=== PATIENT | male | born 1990 | race Caucasian/White ===

== ENCOUNTER 2024-09-16 19:43 | Observation (INO) | payer OTHER, SELFPAY ==
[2024-09-16 19:44] VITALS: BP 152/98; PULSE 67; RESP 18; TEMP 36.9; O2SAT 96
--- NOTE | 2024-09-16 19:45 | ED_ITS ---
HPI - General Adult General Chief complaint: Alcohol Stated complaint: dehydration Time Seen by Provider: 09/16/24 19:45 Source: patient Mode of arrival: ambulatory History of Present Illness HPI narrative: 34-year-old white male alcoholic was sober for 3 130 days and then relapsed 2 days ago since that time he has been nauseous throwing up can not keep anything down. He went altered emergency room where they put an IV in him and gave him Zofran but he had a prolonged wait after triage show a left without being seen or AMA it comes here with his IV and. ( this was removed and a new IV was started ). patient state he vomited over 10 or 12 times yesterday and some diarrhea he is nauseated he feels a little bit better than before but feels dizzy and lightheaded when he stands up otherwise he denies any pain the ankle sore throat from vomiting. For denies any bleeding or bruising lumps or bumps weakness or numbness or any other complaints. Related Data Home Medications ?Medication ?Instructions ?Recorded ?Confirmed ?Last Taken ?Type bupropion HCl 300 mg 24 hr tablet, 300 mg PO DAILY 09/16/24 Unknown History extended release diazepam 2 mg tablet 2 mg PO Q6H PRN anxiety 09/16/24 Unknown History lithium carbonate 300 mg tablet 300 mg PO BID 09/16/24 Unknown History Allergies Allergy/AdvReac Type Severity Reaction Status Date / Time No Known Allergies Allergy Unverified 07/09/14 16:05 Review of Systems 2 Review of Systems: All systems reviewed & are unremarkable except as noted in HPI and below [facility] Past Medical History Medical History (Updated 09/16/24 @ 21:54 by Richy Felder MD) Insomnia Chronic depression Chronic anxiety Exam 2 Narrative: ?White male patient with no apparent distress.? Head normocephalic, atraumatic.? Eyes conjunctiva pink sclera nonicteric.? Extraocular movements are intact.? Ears externally normal.? Oropharynx is clear with moist mucous membranes without exudates.? Neck is supple nontender no lymphadenopathy.? Back is nontender.? Lungs are clear.? Heart is regular rate and rhythm without murmurs gallops or rubs.? Chest wall nontender. Abdomen is soft and nontender no hepatosplenomegaly or masses no CVA tenderness no abdominal bruits.? Extremities no cyanosis clubbing or edema.? Skin is warm and dry without rashes or lesions.? Neurological patient is alert and oriented x 4. Motor and sensory grossly intact.? Gait is normal. Course Vital Signs Vital signs: Vital Signs Temperature 36.9 C 09/16/24 19:44 Pulse Rate 67 09/16/24 19:44 Respiratory Rate 18 09/16/24 19:44 Blood Pressure 152/98 H 09/16/24 19:44 Pulse Oximetry 96 09/16/24 19:44 Oxygen Delivery Room Air 09/16/24 19:44 Temperature 37.7 C H 09/16/24 21:47 Pulse Rate 67 09/16/24 21:47 Respiratory Rate 18 09/16/24 21:47 Blood Pressure 140/90 09/16/24 21:47 Pulse Oximetry 97 09/16/24 21:47 Oxygen Delivery Room Air 09/16/24 21:47 Medical Decision Making MDM Narrative Medical decision making narrative: Patient placed in room 1 with his mother magnesium ETOH urine drug screen CMP UA lipase CBC Independent Historian: ? mode Differential Dx includes but not limited to: electrolyte imbalance alcoholism alcohol withdrawal pancreatitis Medications were Reviewed:? ? home meds reviewed Medications treatments given: normal saline 1 L bolus Zofran 4 mg IV , both were repeated. He felt better after his 1st round of saline and Zofran. complains of reflux burning for which he takes anti-reflux medications. Protonix 40 mg IV given. Patient was offered admission patient refused. Independently Interpreted by me:? labs independently interpreted by me.?? External Source Review:?? Medical conditions/social Situation Impacting Patients Care:?? History of alcoholism Shared decision Making:? Offered admission but patient refused be given Protonix 40 mg daily and Zofran 4 mg ODT as needed for nausea vomiting encouraged to increase his fluids by mouth return if he gets worse or develops any new symptoms. patient will take 20 mg of potassium daily for the next 10 days and follow up with his primary care provider this week Discussed with ? Clinical impression:? ? Nausea vomiting diarrhea, hypokalemia, alcoholism ? Patient disposition: ? discharge home ? Condition at discharge: stable Vital Signs Vital Signs: Vital Signs Temperature 36.9 C 09/16/24 19:44 Pulse Rate 67 09/16/24 19:44 Respiratory Rate 18 09/16/24 19:44 Blood Pressure 152/98 H 09/16/24 19:44 Pulse Oximetry 96 09/16/24 19:44 Oxygen Delivery Room Air 09/16/24 19:44 Temperature 37.7 C H 09/16/24 21:47 Pulse Rate 67 09/16/24 21:47 Respiratory Rate 18 09/16/24 21:47 Blood Pressure 140/90 09/16/24 21:47 Pulse Oximetry 97 09/16/24 21:47 Oxygen Delivery Room Air 09/16/24 21:47 Lab Data 09/16/24 20:04 09/16/24 20:04 Labs: Lab Results 09/16/24 Range/Units 20:04 WBC 22.6 H (4.8-10.8) K/mm3 RBC 5.75 (4.70-6.10) M/mm3 Hgb 16.6 (14.0-18.0) g/dL Hct 48.9 (40.0-54.0) % MCV 85.0 (78.0-102.0) fL MCH 28.9 (27.0-31.0) pg MCHC 33.9 (32-36) g/dL RDW 13.4 (11.6-14.4) % Plt Count 289 (150-420) K/mm3 MPV 10.9 (8.7-11.0) fl Sodium 135 L (137-145) mmol/L Potassium 3.1 L (3.4-5.0) mmol/L Chloride 88 L (98-107) mmol/L Carbon Dioxide 35 H (22-30) mmol/L Anion Gap 12 (4-12) mmol/L BUN 25 H (9-20) mg/dL Creatinine 1.20 (0.7-1.3) mg/dL Estim Creat Clear Calc 74 ml/min Estimated GFR > 60 (59 - ) Glucose 149 H (65-110) mg/dL Calculated Osmolality 287 (285-295) mOsm/kg Calcium 9.6 (8.4-10.2) mg/dL Magnesium 2.3 (1.6-2.3) mg/dL Total Bilirubin 2.0 H (0.2-1.3) mg/dL AST 51 (17-59) U/L ALT 57 H (6-50) U/L Alkaline Phosphatase 113 (38-126) U/L Total Protein 8.7 H (6.3-8.2) g/dL Albumin 5.3 H (3.5-5.1) g/dL Lipase 31 (23-300) U/L Urine Color Brown A (Yellow) Urine Appearance Clear (Clear) Urine pH 7.0 (5.0-8.0) Ur Specific [place] 1.015 (1.010-1.020) Urine Protein 2+ H (Negative) Urine Glucose (UA) Negative (Negative) Urine Ketones Negative (Negative) Ur Blood (Man) Negative (Negative) Urine Nitrate Negative (Negative) Urine Bilirubin 1+ H (Negative) Urine Urobilinogen 1.0 (0.2-1.0) mg/dL Leukocyte Esterase Rfl Negative (Negative) RAYMON/UL Urine RBC 0-2 (0-2) /hpf Urine WBC 0-3 (0-3) /hpf Ur Squamous Epith Cells None seen (Few) /hpf Urine Bacteria None seen (None) /hpf Urine Opiates Screen Negative (Negative) Urine Methadone Screen Negative (Negative) Ur Barbiturates Screen Negative (Negative) Ur Phencyclidine Scrn Negative (Negative) Ur Amphetamine Screen Negative (Negative) U Benzodiazepines Scrn Positive A (Negative) Urine Cocaine Screen Negative (Negative) U Cannabinoids Screen Positive A (Negative) Ethyl Alcohol < 10 (<10) mg/dL Discharge Plan Discharge Clinical Impression: Nausea vomiting and diarrhea, Acute hypokalemia, Chronic gastroesophageal reflux disease Patient Disposition: Home Condition: Stable Instructions: Hypokalemia (ED), GERD (Gastroesophageal Reflux Disease) (ED), Acute Nausea and Vomiting (ED), Acute Diarrhea (ED) Additional Instructions: take Protonix 40 mg daily. Take Zofran 4 mg oral dissolvable tablet every 4 hours as needed for nausea vomiting. Advance her diet slowly. Follow up with your primary care provider this week. Return if you get worse or develops any new symptoms. Take K-Dur 20 mEq daily for 10 days Patient Language: Ecuadorean Prescriptions: New potassium chloride 20 mEq tablet,ER particles/crystals 20 meq PO DAILY Qty: 10 0RF ondansetron 4 mg tablet,disintegrating 4 mg PO Q4H PRN (Reason: nausea and vomiting) 7 Days Qty: 20 0RF Rx Instructions: give 1st dose 30min before emetogenic chemo pantoprazole [Protonix] [address] for susp in packet 40 mg PO DAILY Qty: 30 0RF No Action bupropion HCl 300 mg tablet extended release 24 hr 300 mg PO DAILY lithium carbonate 300 mg tablet 300 mg PO BID diazepam 2 mg tablet 2 mg PO Q6H PRN (Reason: anxiety) Follow-up/Referrals: Sandra Blair APRN [Primary Care Provider] - Stand Alone Forms: Work/School Release IP Time of Disposition: 21:52
--- OUTSIDE RECORDS SUMMARY | 2024-09-16 19:45 | XMS_ITS | Encounter Summary ---
Author Organization [facility] Healthcare Address [address] [place] [address] Care Team Providers Care Schedule Analyst Name Role Phone Beto Blair MD Primary Care Provider [phone] Reason for Visit * Reason Comments Vomiting Encounter Details Date Type Department Care Team (Late st Contact Info) Description 09/16/2024 6:52 PM CDT - 09/16/2024 6:55 PM CDT Emergency [facility] Emergency Department [address] [place] [id number] Discharge Disposition: Left without being seen Social History Tobacco Use Types Packs/Day Years Used Date Smoking Tobacco: Every Day Cigarettes Last attempted to quit: 08/15/2020 Smokeless Tobacco: Never Alcohol Use Standard Drinks/Week Comments Yes 0 (1 standard drink = 0.6 oz pur e alcohol) beer AUDIT-C Answer Date Recorded Frequency of Alcohol Consumption Not on file 11/23/2018 Average Number of Drinks 1 or 2 019 Frequency of Binge Drinking Not on file 12/2018 PHQ-2 Answer Date Recorded PHQ-2 Total Score (If total score is 3 or more points, staff should administer the PHQ-9) 0 02/12/2024 Personal Safety Answer Date Recorded Have you ever been in or are you currently in a harmful physical or emotional relationship or is someone making you feel afraid or unsafe? Denies 09/16/2024 Sex and Gender Information Value Date Recorded Sex Assigned at Not on file Legal Sex Male 2:35 PM [employer] Gender Identity Not on file Sexual Orientation Not on file documented as of this encounter Last Filed Vital Signs Vital Sign Reading Time Taken Comments Blood Pressure 140/96 09/16/2024 4:41 PM CDT Pulse 83 09/16/2024 4:39 PM CDT Temperature 36.3 C (97.4 F) 09/16/2024 4:39 PM CDT Respiratory Rate 19 09/16/2024 4:39 PM CDT Oxygen Saturation 100% 09/16/2024 4:39 PM CDT Inhaled Oxygen Concentration - - Weight 74.8 kg (165 lb) 09/16/2024 4:39 PM CDT Height 182.9 cm (6') 09/16/2024 4:39 PM CDT Body Mass Index 22.38 09/16/2024 4:39 PM CDT documented in this encounter Medications at Time of Discharge acetaminophen (TYLENOL) 500 mg tabletIndications :Pain Take 2 tablets (1,000 mg total) by mouth every 6 (six) hours as needed for pain amitriptyline (ELAVIL) 25 mg tablet Take 1 tablet (25 mg total) by mouth nightly 90 tablet 4 02/12/2024 02/11/2025 buPROPion XL (WELLBUTRIN XL) 300 mg 24 hr tablet TAKE 1 TABLET (300 MG TOTAL) BY MOUTH EVERY MORNING. 90 tablet 3 08/05/2024 08/05/2025 diazePAM (VALIUM) 2 mg tablet Take 1 tablet (2 mg total) by mouth every 6 (six) hours as needed for anxiety 30 tablet 08/21/2024 lithium 300 mg tablet Take 1 tablet/capsul e (300 mg total) by mouth 2 (two) times a day 180 tablet/capsule 3 02/12/2024 02/11/2025 documented as of this encounter Discharge Disposition Disposition Code Departure Means Destination Comment s Left without being seen documented in this encounter ED Notes * Elsie Kirby RN - 09/16/2024 4:38 PM CDT Pt ambulatory to triage for vomiting. 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 documented in this encounter Plan of Treatment Scheduled Orders Name Type Priority Associated Diagnoses Orde r Schedule Urinalysis reflex to microscopic and culture Urine Microbiology STAT STAT for 1 Occurrences starting 09/16/2024 until 09/16/2024 documented as of this encounter Procedures Procedure Name Priority Date/Time Associated Diagnosis Comments EGFR STAT 09/16/2024 4:46 PM CDT DIFFERENTIAL AUTO STAT 09/16/2024 4:4 6 PM CDT CBC WITH AUTO DIFFERENTIAL STAT 09/16/2024 4:46 PM CDT COMPREHENSIVE METABOLIC PANEL STAT 09/16/2024 4:46 PM CDT documented in this encounter Results * eGFR (09/16/2024 4:46 PM CDT) eGFR >90 >=60 mL/min/1. 73 m2 Comment: Interpretive Data Reference Interval Normal >/= 90 mL/min/1.73m2 Mildly decreased* 60 - 89 mL/min/1.73m2 Mildly to moderately decreased 45 - 59 mL/min/1.73m2 Moderately to severely decreased 30 - 44 mL/min/1.73m2 Severely decreased 15 - 29 mL/min/1.73m2 Kidney Failure < 15 mL/min/1.73m2 *Relative to young adult level Estimated glomerular filtration rate is determined by the 2020 CKD-EPI equation recommended by the National Kid[employer] (A Unifying Approach to GFR Estimation: Recommendations of the NKF-ASK Task Force on Reassessing the Inclusion of Race in Diagnosing Kidney Disease, JASN 202). The CKD-EPI equation should not be used for patients with unstable renal function and has not been validated in children and those over 70. Current interpretive data was last reviewed 2021. Blood 09/16/2024 4:46 PM CDT 09/16/2024 5:08 PM CDT us Mehdi Jaffe MD LAB BLOOD ORDERABLES Final R esult [facility]) [facility] [place] [address] * (ABNORMAL) Differential, auto (09/16/2024 4:46 PM CDT) Neutrophil abs 18.11(H) 1.50 - 6.50 K/cumm Imm gran abs 0.13(H) 0.00 - 0.10 K/cumm [facility] ([facility]) Lymphocyte abs 3.28 0.80 - 3.30 K/cumm [facility] ([facility]) Monocyte abs 1.84(H) 0.20 - 0.80 K/cumm [facility] ([facility]) Eosinophil abs 0.01 0.00 - 0.50 K/cumm [facility] ([facility]) Basophil abs 0.06 0.00 - 0.10 K/cumm [facility] ([facility]) Neutrophil pct 77.2 % [facility] ([facility]) Comment: Interpretive Data Percent cell count reference ranges are not reported, since discordance with absolute values may lead to misinterpretation of CBC data. Current Interpretive Data was last revised on 2017. Imm gran pct 0.6 % [facility] ([facility]) Comment: Interpretive Data Percent cell count reference ranges are not reported, since discordance with absolute values may lead to misinterpretation of CBC data. Current Interpretive Data was last revised on 2017. Lymphocyte pct 14.0 % [facility] ([facility]) Comment: Interpretive Data Percent cell count reference ranges are not reported, since discordance with absolute values may lead to misinterpretation of CBC data. Current Interpretive Data was last revised on 2017. Monocyte pct 7.9 % [facility] ([facility]) Comment: Interpretive Data Percent cell count reference ranges are not reported, since discordance with absolute values may lead to misinterpretation of CBC data. Current Interpretive Data was last revised on 2017. Eosinophil pct 0.0 % [facility] ([facility]) Comment: Interpretive Data Percent cell count reference ranges are not reported, since discordance with absolute values may lead to misinterpretation of CBC data. Current Interpretive Data was last revised on 2017. Basophil pct 0.3 % [facility] ([facility]) Comment: Interpretive Data Percent cell count reference ranges are not reported, since discordance with absolute values may lead to misinterpretation of CBC data. Current Interpretive Data was last revised on 2017. Blood 09/16/2024 4:46 PM CDT 09/16/2024 5:08 PM CDT us Mehdi Jaffe MD LAB BLOOD ORDERABLES Final R esult [facility] ([facility]) [facility] [place] [address] * (ABNORMAL) Comprehensive metabolic panel (09/16/2024 4:46 PM CDT) Sodium 135 135 - 145 mmol/L Potassium, pl 3.0(C) 3.3 - 4.9 mmol/L [facility] ([facility]) Comment:Critical Result call ed by [email or web address] at 2024-09-16 17:58:59. Result Read Back by Shasta Morris ER charge Chloride 86(L) 97 - 110 mmol/L [facility] ([facility]) CO2 27 22 - 32 mmol/L [facility] ([facility]) Anion gap 22(H) 2 - 15 mmol/L [facility] ([facility]) BUN 21 6 - 25 mg/dL [facility] ([facility]) Creatinine 1.02 0.80 - 1.30 mg/dL [facility] ([facility]) Comment:Icteric sample, test results may be affected. Glucose 157 70 - 199 mg/dL [facility] ([facility]) Comment: Interpretive Data Fasting glucose >/= 126 mg/dl is diagnostic for diabetes. Fasting is defined as no caloric intake for at least 8 hours. Fasting glucose between 100 mg/dl to 125 mg/dl is diagnostic of prediabetes. In a patient with classic symptoms of hyperglycemia or hyperglycemic crisis, a random glucose >/= 200 mg/dl is diagnostic for diabetes. In the absence of unequivocal hyperglycemia, results should be confirmed by repeat testing. The classification and Diagnosis of Diabetes Diabetes Care 202; 46: S19-S40. Current interpretive data was last revised 2022. Calcium 10.3 8.5 - 10.3 mg/dL [facility] ([facility]) Bilirubin, total 1.6(H) 0.1 - 1.2 mg/dL [facility] ([facility]) Protein, pl 8.3 6.5 - 8.5 g/dL [facility] ([facility]) Albumin 5.3(H) 3.5 - 5.0 g/dL [facility] ([facility]) Alk phos 139(H) 40 - 130 Units/L [facility] ([facility]) ALT 35 7 - 55 Units/L [facility] ([facility]) AST 31 10 - 50 Units/L [facility] ([facility]) Blood Venous blood specimen / Unknown 09/16/2024 4:46 PM CDT 09/16/2024 5:08 PM CDT us Mehdi Jaffe MD LAB BLOOD ORDERABLES Final R esult [facility] ([facility]) [address] [facility] [place] [address] * (ABNORMAL) CBC with auto differential (09/16/2024 4:46 PM CDT) WBC 23.43(H) 3.80 - 9.90 K/cumm Hgb 16.9 13.0 - 17.5 g/dL [facility] ([facility]) Hct 47.8 38.9 - 50.3 % [facility] ([facility]) Plt 271 150 - 400 K/cumm [facility] ([facility]) MPV 11.2 9.1 - 12.3 fL [facility] ([facility]) RBC 5.68 4.30 - 5.80 M/cumm [facility] ([facility]) MCV 84.2 81.3 - 96.4 fL [facility] ([facility]) MCH 29.8 27.1 - 33.3 pg [facility] ([facility]) MCHC 35.4 32.3 - 35.7 g/dL [facility] ([facility]) RDW CV 13.6 11.1 - 14.9 % [facility] ([facility]) RDW SD 42.0 35.7 - 48.1 fL [facility] ([facility]) NRBC abs 0.00 0.00 - 0.01 K/cumm [facility] ([facility]) Blood Venous blood specimen / Unknown 09/16/2024 4:46 PM CDT 09/16/2024 5:08 PM CDT us Mehdi Jaffe MD LAB BLOOD ORDERABLES Final R esult [facility] ([facility]) [address] [facility] [place] [address] documented in this encounter Visit Diagnoses Not on filedocumented in this encounter Administered Medications Active Administered Medications - up to 3 most recent administrations Medication Order MAR Action Action Date Dose Rate Site ondansetron ODT (ZOFRAN-ODT) disintegrating tablet 4 mg 4 mg, oral, Once as needed, nausea, vomiting, If able to tolerate PO, Starting on Mon09/16/24 at 1640, For 1 dose, Do not administer if patient had 8mg administered within 6 hours of patient presenting to ED Do not administer if patient was formally diagnosed with prolonged QT syndrome If administering by mouth, place tablet on tongue and allow to dissolve. Inactive Administered Medications - up to 3 most recent administrations Medication Order MAR Action Action Date Dose Rate Site ondansetron (ZOFRAN) injection 4 mg 4 mg, intravenous, Administer over 2 Minutes, Once as needed, nausea, vomiting, If patient unable to tolerate PO, Starting on Mon09/16/24 at 1640, For 1 dose, Do not administer if patient had 8mg administered within 6 hours of patient presenting to ED Do not administer if patient was formally diagnosed with prolonged QT syndrome Given 09/16/2024 4:45 PM CDT 4 mg documented in this encounter Active and Recently Administered Medications Times are shown in CDT. PRN Medication Order 09/14/2024 09/15/2024 09/16/2024 ondansetron (ZOFRAN) injection 4 mg (COMPLETED) 4 mg, intravenous, Administer over 2 Minutes, Once as needed, nausea, vomiting, If patient unable to tolerate PO, Starting on Mon09/16/24 at 1640, For 1 dose, Do not administer if patient had 8mg administered within 6 hours of patient presenting to ED Do not administer if patient was formally diagnosed with prolonged QT syndrome 1645 (Given - Provid er: Elsie Kirby RN) ondansetron ODT (ZOFRAN-ODT) disintegrating tablet 4 mg 4 mg, oral, Once as needed, nausea, vomiting, If able to tolerate PO, Starting on 09/16/24 at 1640, For 1 dose, Do not administer if patient had 8mg administered within 6 hours of patient presenting to ED Do not administer if patient was formally diagnosed with prolonged QT syndrome If administering by mouth, place tablet on tongue and allow to dissolve. documented in this encounter Orders Medications Ordered That Aaron ht Not Have Been Administered Count Last Ordered Date First Ordered Date ondansetron ODT (ZOFRAN-ODT) disintegrating tablet 4 mg 1 09/16/2024 Nursing Count Last Ordered Date First Orde red Date MISCELLANEOUS NURSING CARE ORDER (SPECIFY) 1 09/16/2024 IV Count Last Ordered Date First Orde red Date SALINE LOCK IV 1 09/16/2024 documented in this encounter Care Teams Schedule Analyst Relationship Specialty Start Date End Date Beto Blair MD [address] [place] [address] PCP - General Family Medicine 09/24/21 documented as of this encounter
--- OUTSIDE RECORDS SUMMARY | 2024-09-16 19:45 | XMS_ITS | Clinical Summary ---
Author Organization [facility] Building [address] Address [address] [place] [address] Care Team Providers Care Assembler Bicycle Name Role Phone Beto Corea MD Primary Care Provider [phone] Allergies No known active allergies Medications acetaminophen (TYLENOL) 500 mg tabletIndicatio ns:Pain Take 2 tablets (1,000 mg total) by mouth every 6 (six) hours as needed for pain Active amitriptyline (ELAVIL) 25 mg tablet Take 1 tablet (25 mg total) by mouth nightly 90 tablet 4 4 02/12/20 25 Active lithium 300 mg tablet Take 1 tablet/capsu le (300 mg total) by mouth 2 (two) times a day 180 tablet/capsul e 3 4 02/12/20 25 Active buPROPion XL (WELLBUTRIN XL) 300 mg 24 hr tablet TAKE 1 TABLET (300 MG TOTAL) BY MOUTH EVERY MORNING. 90 tablet 3 5 08/06/19 26 Active diazePAM (VALIUM) 2 mg tablet Take 1 tablet (2 mg total) by mouth every 6 (six) hours as needed for anxiety 30 tablet 5 Active diazePAM (VALIUM) 2 mg tablet Take 1 tablet (2 mg total) by mouth every 6 (six) hours as needed for anxiety 30 tablet 5 08/22/19 25 Discontinu ed(Reorder ) Active Problems Problem Noted Date Diagnosed Date Acute right-sided low back pain without sciatica 09/01/2024 Assessment & Plan (09/01/2024 8:59 PM CDT): New onset, consistent with muscle strain Encourage use of heating pads, Tylenol 500 mg every 6 hours TANYA (generalized anxiety disorder) 02/12/2024 Assessment & Plan (09/01/2024 8:58 PM CDT): Patient reports worsening anxiety secondary to job stress; no longer using alcohol as a coping mechanism Has relief with diazepam Continue diazepam 2 mg every 6 hours as needed; encouraged mutual support groups and other social interactions to help with anxiety Assessment & Plan (04/23/2024 11:55 AM CISCO CERTIFIED INTERNETWORK EXPERT): Uses amitriptyline as needed, generally falls asleep before needs medications Has improvement with anxiety taking Valium 2 mg daily Continue lithium 300 mg b.i.d., bupropion 300 mg daily, Valium 2 mg daily Assessment & Plan (02/12/2024 2:30 PM CDT): Not well controlled; has been worsening; increased stressors related to work Difficulty with sleeping at night; feels crazy at times, occasional episodes of panic attacks Will start amitriptyline 25 mg nightly to help with sleep initiation; Valium 2 mg p.r.n. for panic attacks Cigarette nicotine dependence without complicati on 08/11/2023 Assessment & Plan (08/11/2023 11:18 AM CDT): Counseled on smoking cessation. He does not want to quit at this time we will discuss at future office visits Palmar wart 01/30/2023 Assessment & Plan (01/30/2023 12:33 PM CDT): Not well controlled; has fewer warts; but continues to have wart on palmar aspect of left hand and dorsum of right hand; no relief with Aldara Will refer to dermatology Alcohol use disorder, mild, in early remission 0 12/12/2022 Assessment & Plan (09/01/2024 8:58 PM CDT): Stable, well controlled; sober for 103 days Avoiding alcohol related to social circles which limits patient's social interaction Encourage support groups and engagement with Peer bombsight specialist Assessment & Plan (04/23/2024 11:54 AM CISCO CERTIFIED INTERNETWORK EXPERT): Stable, improving; patient reports medications have helped reduce desire to drink Continue management of TANYA and depression Assessment & Plan (02/12/2024 2:30 PM CDT): Not well controlled, drinks about once per week; reports 4-5 drinks per episode; notes worsening symptoms when drinking Encouraged work towards cessation Assessment & Plan (08/11/2023 11:18 AM CDT): Has been abstinent of alcohol for the past 3 months. Continue to avoid. Assessment & Plan (01/30/2023 12:32 PM CDT): Stable, improving; patient reports he is decreased alcohol intake; still drink some, mostly in social situations; binge drinking occurs approximately 1 day monthly Encouraged continued work on complete cessation Continue naltrexone 50 mg daily Assessment & Plan (12/12/2022 9:47 AM CDT): Stable, improving; patient reports decreased desire to drink; patient reports symptoms have been present for extended duration Patient reports he does not drink alcohol daily; but changes to binge drink on weekends, drinking to excess Continue naltrexone extended release injection every 30 days Patient given resources for warm handoff program and peer bombsight specialist for individual support Plantar warts 12/12/2022 Assessment & Plan (12/12/2022 9:47 AM CDT): Stable, generally well controlled; patient has 3 major warts that are present; impacts patient's ability to perform certain activities including working with [employer] and other tools Will start imiquimod 3.75% daily application; evaluate response to therapy at follow-up appointment Gastroesophageal reflux disease 08/01/2022 Assessment & Plan (04/23/2024 11:55 AM CIS[employer] CERTIFIED INTERNETWORK EXPERT): Has been worsening for patient, no relief Encourage dietary changes Will start medications if no relief Assessment & Plan (08/11/2023 11:18 AM CDT): Self discontinued the Pepcid. States symptoms are well controlled with lifestyle modifications. Still does not tolerate acidic foods so he avoids them. Assessment & Plan (12/12/2022 9:46 AM CDT): Stable, well controlled; continue famotidine 20 mg b.i.d. Assessment & Plan (08/01/2022 10:10 AM CDT): Not well controlled; patient reports worsening symptoms, pain in esophagus; difficulty with swallowing No relief with [id number]-rgmvout treatments Start pantoprazole 40 mg b.i.d.; refer to GI for possible EGD Pharyngoesophageal dysphagia 08/01/2022 Assessment & Plan (08/01/2022 10:11 AM CDT): Not well controlled, worsening; patient reports he is had symptoms of dysphagia since infection and surgery performed approximately 3 years ago Patient reports no has to modify swallowing of liquids and solids Will refer to GI for EGD; based on EGD findings, consider swallow study Neuropathy 11/04/2020 Assessment & Plan (11/04/2020 4:40 PM CDT): Patient has neuropathy, likely secondary to multiple surgeries and skin grafts Will start gabapentin 300 mg t.i.d. Recurrent major depressive disorder, in partial remission 11/04/2020 Assessment & Plan (09/01/2024 8:58 PM CDT): Stable, well controlled, no major issues at this time, good relief with current medications side effects Continue bupropion 300 mg daily, lithium 300 mg b.i.d. Assessment & Plan (04/23/2024 11:55 AM CISCO CERTIFIED INTERNETWORK EXPERT): Stable, well controlled, good relief with the medications, some mild worsening due to cold weather, decrease sunlight winter and decrease to work due to weather conditions Continue bupropion 300 mg daily, lithium 300 mg b.i.d. Assessment & Plan (04/23/2024 11:54 AM CISCO CERTIFIED INTERNETWORK EXPERT): >>ASSESSMENT AND PLAN FOR CURRENT MILD EPISODE OF MAJOR DEPRESSIVE DISORDER WITHOUT PRIOR EPISODE (HCC) WRITTEN ON 11/04/2020 4:39 PM BY BETO COREA MD Longstanding depression, previously self medicated with marijuana Reports that sleep is improving since discharge from hospital Will continue Lexapro 20 mg and BuSpar 5 mg b.i.d. Assessment & Plan (04/23/2024 11:54 AM CISCO CERTIFIED INTERNETWORK EXPERT): >>ASSESSMENT AND PLAN FOR CURRENT MILD EPISODE OF MAJOR DEPRESSIVE DISORDER WITHOUT PRIOR EPISODE (HCC) WRITTEN ON 12/12/2022 9:48 AM BY BETO COREA MD Stable, improving; patient recently admitted to [facility] for suicidal ideations, related to binge drinking Patient evaluated by Psychiatry; medications adjusted; started on lithium 300 mg b.i.d.; bupropion 150 mg daily and Vivitrol Patient reports improvements in mood; no current suicidal ideations or thoughts; patient engaging with psychiatry as well as individual counseling Patient continues to have complaints related to insomnia; difficulty sleeping with interrupted sleep cycle Will defer to Psychiatry for evaluation possible therapeutics, information provided regarding CBT I Assessment & Plan (04/23/2024 11:54 AM CISCO CERTIFIED INTERNETWORK EXPERT): >>ASSESSMENT AND PLAN FOR CURRENT MILD EPISODE OF MAJOR DEPRESSIVE DISORDER WITHOUT PRIOR EPISODE (HCC) WRITTEN ON 01/30/2023 12:32 PM BY BETO COREA MD Stable, well controlled; patient reports no major issues with depression Continue bupropion 150 mg daily, lithium 300 mg b.i.d. Assessment & Plan (04/23/2024 11:54 AM CISCO CERTIFIED INTERNETWORK EXPERT): >>ASSESSMENT AND PLAN FOR CURRENT MILD EPISODE OF MAJOR DEPRESSIVE DISORDER WITHOUT PRIOR EPISODE (HCC) WRITTEN ON 02/12/2024 2:29 PM BY BETO COREA MD Stable, well controlled; patient reports no significant depression Continue bupropion 300 mg daily; lithium 300 mg b.i.d. Assessment & Plan (08/11/2023 11:19 AM CDT): Continue lithium, discussed need for the b.i.d. dosing. He states he will try to figure out a way to remember the 2nd dose. We will increase bupropion to 300 mg daily to see if symptoms improve. Severe malnutrition 09/09/2020 Assessment & Plan (11/04/2020 4:39 PM CDT): Decrease p.o. intake due to severe infection that started July Infected wisdom tooth that fos necrotizing fasciitis of upper chest Patient now has improved appetite, has been eating more Will continue to monitor nutritional status Encounters Date Type Department Care Team Description 09/16/2024 6:52 PM CDT - 09/16/2024 6:55 PM CDT Emergency [facility] Emergency Department [address] [place] [address] Discharge Disposition: Left without being seen 08/21/2024 10:45 AM CDT [facility] Visit [facility] [address] [address] Beto Corea MD TANYA (generalized anxiety disorder) (Primary Dx); Screening for lipid disorders; Recurrent major depressive disorder, in partial remission; Alcohol use disorder, mild, in early remission; Acute right-sided low back pain without sciatica from Last 3 Months Immunizations Immunization Administration Dates Next Due DTaP 1993, 1,03/06/1989,02/21/1989,1 ,1988 Hep B, Adolescent or Pediatric 12/29/1999,1999,06/23/1999 HiB 08/29/1990 Influenza, Unspecified 04/23/2024(Deferr ed: Patient Refused),01/30/2023(Deferred: Patient Refused),04/17/2022(Deferred: Patient Refused),04/17/2022(Deferred: Patient Refused),04/17/2021(Deferred: Patient Refused),04/17/2020(Deferred: Patient Refused),04/17/2019(Deferred: Patient Refused) MMR 1993,12/19/1989 OPV 1993, 1,01/19/1989,1988,0 1988 Td, adsorbed 12/29/1999 Surgical History Surgery Date Site/Laterality Comments KNEE ARTHROSCOPY Right Arthroscopy knee OTHER SURGICAL HISTORY 2020 Neck & Chest Debridement & tooth extraction (Exploration Wound - Sternal, resection of clavicle, repair of vein, brochoscope) OTHER SURGICAL HISTORY 08/19/20, 08/21/20, 08/22/20, 08/24/20, 08/27/20 Neck & chest debridement Social History Tobacco Use Types Packs/Day Years Used Date Smoking Tobacco: Every Day Cigarettes Last attempted to quit: 08/15/2020 Smokeless Tobacco: Never Tobacco Cessation:Ready to Q uit: Not Asked; Counseling Given: Not Answered Alcohol Use Standard Drinks/Week Comments Yes 0 [...] on file Legal Sex Male 2:35 PM CISCO CERTIFIED INTERNETWORK EXPERT Gender Identity Not on file Sexual Orientation Not on file Obstetrics History Last Filed Vital Signs Vital Sign Reading [...] Mass Index 22.38 09/16/2024 4:39 PM CDT Plan of Treatment Health Maintenance Due Date Last Done Comments DTaP/Tdap/Td Vaccine (6 - Tdap) 12/30/1999 12/29/1999, 1993, 05/10/1990, Additional history exists Varicella Vaccines (1 of 2 - 13+ 2-dose series) 2001 Regular Well Visit/Exam 18-64 2006 Pneumococcal vaccine <65 (1 of 2 - PCV) 08/18/2007 Influenza Vaccine (Season Ended) 2024 Depression Screening 02/11/2025 02/12/2024, 01/30/2023, 08/01/2022, Additional history exists Hepatitis B Screening Completed 12/29/1999 , 07/28/1999, 06/23/1999 Hepatitis C Screening Completed 04/23/2024 HPV Vaccines Aged Out No longer eligi ble based on patient's age to complete this topic Medical Devices Implanted Type Area Airport Engineer Device Identifier Shelf Expiration Date Model / Serial / Lot SezWho [id number] Vascu-Guard 8x.8cm Peripheral Patch Vascular Bovine Pericardium - [id number] Implanted:Qty: 1 on 2020 by Alberto Casarez MD at [facility] Right: Neck SezWho [id number] 10/29/2024 [id number] / / [id number] [employer] Allian [id number] Tyler Microvascular Anastomoses 4mm Pig Casting Machine Operator Anastomosis Sterile - [id number] Implanted:Qty: 1 on 09/04/2020 by Diaz Rey MD at [facility] [employer] Allian [id number] 01/20/2025 [id number] / / [id number] Rockwell Collins [id number] Probe Doppler 17.4cm Standard Cuff Implantable 20mhz Latex Free Sterile Microvascular Anastomoses Jerry - [id number] Implanted:Qty: 1 on 09/04/2020 by Diaz Rey MD at [facility] Left: Neck Rockwell Collins [id number] 06/15/2023 [id number] / / [id number] Procedures Procedure Name Priority Date/Time Associated Diagnosis Comments EGFR STAT 09/16/2024 4:46 PM CDT DIFFERENTIAL AUTO STAT 09/16/2024 4:4 6 PM CDT COMPREHENSIVE METABOLIC PANEL STAT 09/16/2024 4:46 PM CDT CBC WITH AUTO DIFFERENTIAL STAT 09/16/2024 4:46 PM CDT HEPATITIS C ANTIBODY Routine 04/23/2024 9:31 AM CISCO CERTIFIED INTERNETWORK EXPERT Encounter for hepatitis C screening test for low risk patient from Last 3 Months or Most Recently Relevant to Health Maintenance Results * eGFR (09/16/2024 4:46 PM CDT) [...] MD LAB BLOOD ORDERABLES Final R esult IGORKIP QDZ ([place]) [address] [facility] Department [place] [address] * (ABNORMAL) Differential, auto (09/16/2024 [...] 4:46 PM CDT 09/16/2024 5:08 PM CDT Mehdi Jaffe MD LAB BLOOD ORDERABLES Final R esult TANMAY GUPTA ([place]) [address] [facility] [place] [employer] [place] [address] * (ABNORMAL) CBC with auto differential (09/16/2024 4:46 PM CDT) WBC 23.43(H) 3.80 - 9.90 K/cumm Hgb 16.9 13.0 - 17.5 g/dL [facility] ([place]) Hct 47.8 38.9 - 50.3 % [facility] ([place]) Plt 271 150 - 400 K/cumm [facility] ([place]) MPV 11.2 9.1 - 12.3 fL [facility] RBC 5.68 4.30 - 5.80 M/cumm [facility] ([place]) MCV 84.2 81.3 - 96.4 fL [facility] ([place]) MCH 29.8 27.1 - 33.3 pg [facility] ([place]) MCHC 35.4 32.3 - 35.7 g/dL [facility] RDW CV 13.6 11.1 - 14.9 % [facility] ([place]) RDW SD 42.0 35.7 - 48.1 fL [facility] NRBC abs 0.00 0.00 - 0.01 K/cumm [facility] ([place]) Blood Venous blood specimen / Unknown 09/16/2024 4:46 PM CDT 09/16/2024 5:08 PM CDT Mehdi Jaffe MD LAB BLOOD ORDERABLES Final R esult TANMAY GUPTA ([place]) 1 [facility] [place] [employer] [place] [address] * (ABNORMAL) Comprehensive metabolic panel (09/16/2024 4:46 PM CDT) Sodium 135 135 - 145 mmol/L Potassium, pl 3.0(C) 3.3 - 4.9 mmol/L [facility] ([place]) Comment:Critical Result call ed by [email or web address] at 2024-09-16 17:58:59. Result Read Back by [...] classification and Diagnosis of Diabetes Diabetes Care 2021; 46: S19-S40. Current interpretive data was last [...] 4:46 PM CDT 09/16/2024 5:08 PM CDT Mehdi Jaffe MD LAB BLOOD ORDERABLES Final R esult [facility] ([place]) [address] [facility] [employer] [place] [address] * Hepatitis C antibody Blood (04/23/2024 9:31 AM CISCO CERTIFIED INTERNETWORK EXPERT) Hep C Ab Nonreactive Nonreactive Comment: Interpretive Data Nonreactive: Antibodies to HCV not detected. Does NOT exclude the possibility of recent exposure to HCV. Equivocal: Equivocal for HCV antibodies. Supplemental molecular testing will be automatically performed to determine infection status in accordance with current CDC screening recommendations. Reactive: Positive for HCV antibodies. This may represent current or past HCV infection. Supplemental molecular testing will be automatically performed to determine current infection status in accordance with current CDC screening recommendations. Interpretive data was last revised on 2019. Testing performed by: [facility], [address] [place] [address]., [id number] Blood 04/23/2024 9:31 AM CISCO CERTIFIED INTERNETWORK EXPERT 04/23/2024 11:48 AM CISCO CERTIFIED INTERNETWORK EXPERT Beto Corea MD LAB MICROBIOLOGY - GENERA L ORDERABLES Final Result Performing Organization Address [facility] Co de Phone Number [facility] ([place]) [address] [facility] [employer] [place] [address] from Last 3 Months or Most Recently Relevant to Health Maintenance [facility] [place] Advance Directives For more information, please contact: [phone] * Full Code (Latest Code Status on File) Date Activated Date Inactivated Comments 2020 11:47 PM 09/18/2020 7:32 PM Care Teams Assembler Bicycle Relationship Specialty Start Date End Date [place] [address] PCP - General Family Medicine 09/24/21
--- OUTSIDE RECORDS SUMMARY | 2024-09-16 19:45 | XMS_ITS | Referral Summary ---
Author Organization [facility] Medical Office Building [address] Address [address] [place] [address] Care Team Providers Care Dental Nurse Name Role Phone Beto Corea MD Primary Care Provider [phone] Encounters Date Type Department Care Team Description 09/16/2024 6:52 PM CDT - 09/16/2024 6:55 PM CDT Emergency [facility] Emergency Department [address] [place] [address] Discharge Disposition: Left without being seen 08/21/2024 10:45 AM CDT Office Visit [facility] [address] [address] Beto Corea MD TANYA (generalized anxiety disorder) (Primary Dx); Screening for lipid disorders; Recurrent major depressive disorder, in partial remission; Alcohol use disorder, mild, in early remission; Acute right-sided low back pain without sciatica from Last 3 Months Allergies No known active allergies Medications acetaminophen [...] anxiety Assessment & Plan (04/23/2024 11:55 AM SACK SEWER MACHINE): Uses amitriptyline as needed, generally falls asleep [...] Encourage support groups and engagement with Peer personnel placement specialist Assessment & Plan (04/23/2024 11:54 AM SACK SEWER MACHINE): Stable, improving; patient reports medications have helped [...] resources for warm handoff program and peer personnel placement specialist for individual support Plantar warts 12/12/2022 Assessment & Plan (12/12/2022 9:47 AM CDT): Stable, generally well controlled; patient has 3 major warts that are present; impacts patient's ability to perform certain activities including working with chain solids and other tools Will start imiquimod 3.75% daily application; evaluate response to therapy at follow-up appointment Gastroesophageal reflux disease 08/01/2022 Assessment & Plan (04/23/2024 11:55 AM SACK SEWER MACHINE): Has been worsening for patient, no relief [...] esophagus; difficulty with swallowing No relief with [id number] treatments Start pantoprazole 40 mg b.i.d.; refer [...] b.i.d. Assessment & Plan (04/23/2024 11:55 AM SACK SEWER MACHINE): Stable, well controlled, good relief with the medications, some mild worsening due to cold weather, decrease sunlight winter and decrease to work due to weather conditions Continue bupropion 300 mg daily, lithium 300 mg b.i.d. Assessment & Plan (04/23/2024 11:54 AM SACK SEWER MACHINE): >>ASSESSMENT AND PLAN FOR CURRENT MILD EPISODE OF MAJOR DEPRESSIVE DISORDER WITHOUT PRIOR EPISODE (HCC) WRITTEN ON 11/04/2020 4:39 PM BY BETO COREA MD Longstanding depression, previously self medicated with marijuana Reports that sleep is improving since discharge from hospital Will continue Lexapro 20 mg and BuSpar 5 mg b.i.d. Assessment & Plan (04/23/2024 11:54 AM SACK SEWER MACHINE): >>ASSESSMENT AND PLAN FOR CURRENT MILD EPISODE OF MAJOR DEPRESSIVE DISORDER WITHOUT PRIOR EPISODE (HCC) WRITTEN ON 12/12/2022 9:48 AM BY BETO COREA MD Stable, improving; patient recently admitted to [facility] for suicidal ideations, related to binge drinking [...] I Assessment & Plan (04/23/2024 11:54 AM SACK SEWER MACHINE): >>ASSESSMENT AND PLAN FOR CURRENT MILD EPISODE OF MAJOR DEPRESSIVE DISORDER WITHOUT PRIOR EPISODE (HCC) WRITTEN ON 01/30/2023 12:32 PM BY BETO COREA MD Stable, well controlled; patient reports no major issues with depression Continue bupropion 150 mg daily, lithium 300 mg b.i.d. Assessment & Plan (04/23/2024 11:54 AM SACK SEWER MACHINE): >>ASSESSMENT AND PLAN FOR CURRENT MILD EPISODE [...] more Will continue to monitor nutritional status Immunizations Immunization Administration Dates Next Due DTaP 1993, 1,03/06/1989,02/21/1989,1 ,1988 Hep B, Adolescent or Pediatric 12/29/1999,1999,06/23/1999 HiB 08/29/1990 Influenza, Unspecified 04/23/2024(Deferr ed: Patient Refused),01/30/2023(Deferred: Patient Refused),04/17/2022(Deferred: Patient Refused),04/17/2022(Deferred: Patient Refused),04/17/2021(Deferred: Patient Refused),04/17/2020(Deferred: Patient Refused),04/17/2019(Deferred: Patient Refused) MMR 1993,12/19/1989 OPV 1993, 1,01/19/1989,1988,0 1988 Td, adsorbed 12/29/1999 Social History Tobacco Use Types Packs/Day Years [...] on file Legal Sex Male 2:35 PM SACK SEWER MACHINE Gender Identity Not on file Sexual Orientation Not on file Last Filed Vital Signs Vital Sign Reading [...] 09/16/2024 4:39 PM CDT Plan of Treatment Not on file Medical Devices Implanted Type Area Electric Blanket Wirer Device Identifier Shelf Expiration Date Model / Serial / Lot [employer]p [employer] [id number] Vascu-Guard 8x.8cm Peripheral Patch Vascular Bovine Pericardium - [id number] Implanted:Qty: 1 on 2020 by Alberto Casarez MD at [facility] Right: Neck [employer] [id number] 10/29/2024 [id number] / / [id number] [employer] Frandy [id number] Upson Microvascular Anastomoses 4mm Kiln Pusher Anastomosis Sterile - [id number] Implanted:Qty: 1 on 09/04/2020 by Diaz Rey MD at [facility] [employer] Alllizbeth [id number] 01/20/2025 [id number] / / [id number] Vigoda [id number] Probe Doppler 17.4cm Standard Cuff Implantable 20mhz Latex Free Sterile Microvascular Anastomoses Dupo - [id number] Implanted:Qty: 1 on 09/04/2020 by Diaz Rey MD at [facility] Left: Neck [employer] [id number] 06/15/2023 [id number] / / [id number] Procedures Procedure Name Priority Date/Time Associated Diagnosis Comments EGFR STAT 09/16/2024 4:46 PM CDT DIFFERENTIAL AUTO STAT 09/16/2024 4:4 6 PM CDT COMPREHENSIVE METABOLIC PANEL STAT 09/16/2024 4:46 PM CDT CBC WITH AUTO DIFFERENTIAL STAT 09/16/2024 4:46 PM CDT HEPATITIS C ANTIBODY Routine 04/23/2024 9:31 AM SACK SEWER MACHINE Encounter for hepatitis C screening test for [...] of Race in Diagnosing Kidney Disease, JASN 2020). The CKD-EPI equation should not be used for patients with unstable renal function and has not been validated in children and those over 70. Current interpretive data was last reviewed 2021. Blood 09/16/2024 4:46 PM CDT 09/16/2024 5:08 PM CDT us Mehdi Jaffe MD LAB BLOOD ORDERABLES Final R esult [facility] ([place]) [address] [facility] Department [place] [address] * (ABNORMAL) Differential, auto (09/16/2024 4:46 PM [...] LAB BLOOD ORDERABLES Final R esult [facility] ([place]) [address] [facility] [place] [address] * (ABNORMAL) CBC with auto differential (09/16/2024 [...] RDW CV 13.6 11.1 - 14.9 % [facility] ([place]) RDW SD 42.0 35.7 - 48.1 fL [facility] ([place]) NRBC abs 0.00 0.00 - 0.01 K/cumm [facility] ([place]) Blood Venous blood specimen / Unknown 09/16/2024 4:46 PM CDT 09/16/2024 5:08 PM CDT Mehdi Jaffe MD LAB BLOOD ORDERABLES Final R esult [facility] ([place]) [address] [facility] Department [place] [address] * (ABNORMAL) Comprehensive metabolic panel (09/16/2024 4:46 PM CDT) Sodium 135 135 - 145 mmol/L Potassium, pl 3.0(C) 3.3 - 4.9 mmol/L [facility] ([place]) Comment:Critical Result call ed by [email or web address] at 2024-09-16 17:58:59. Result Read Back by Shasta Morris ER charge Chloride 86(L) 97 - 110 mmol/L [facility] ([place]) CO2 27 22 - 32 mmol/L [facility] ([place]) Anion gap 22(H) 2 - 15 mmol/L [facility] ([place]) BUN 21 6 - 25 mg/dL [facility] ([place]) Creatinine 1.02 0.80 - 1.30 mg/dL [facility] ([place]) Comment:Icteric sample, test results may be affected. Glucose 157 70 - 199 mg/dL [facility] ([place]) Comment: Interpretive Data Fasting glucose >/= [...] MD LAB BLOOD ORDERABLES Final R esult Performing Organization Address City/[facility]/ZIP Co de Phone Number [facility] ([place]) [address] [place] [address] Department [place] [address] * Hepatitis C antibody Blood (04/23/2024 9:31 AM SACK SEWER MACHINE) Hep C Ab Nonreactive Nonreactive Comment: Interpretive [...] last revised on 2019. Testing performed by: [facility], [address] [place] [address], [place]., [address] Blood 04/23/2024 9:31 AM SACK SEWER MACHINE 04/23/2024 11:48 AM SACK SEWER MACHINE us Beto Corea MD LAB MICROBIOLOGY - GENERA L ORDERABLES Final Result Performing Organization Address City/[facility]/ZIP Co de Phone Number [facility] ([place]) [address] [facility] Department [place] [address] from Last 3 Months or Most Recently Relevant to Health Maintenance [place] Advance Directives For more information, please contact: [phone] * Full Code (Latest Code Status on File) Date Activated Date Inactivated Comments 2020 11:47 PM 09/18/2020 7:32 PM Care Teams Dental Nurse Relationship Specialty Start Date End Date Beto Corea MD [address] [address] PCP - General Family Medicine 09/24/21
--- OUTSIDE RECORDS SUMMARY | 2024-09-16 19:45 | XMS_ITS | Clinical Summary ---
Author Organization [facility] Address [address] [place] [address] Phone Care Team Providers Care Leave Specialist Name Role Phone Unavailable Primary Care Provider Unavailabl e Social History Tobacco Use Types Packs/Day Years Used Date Smoking Tobacco: Never Assessed Sex and Gender Information Value Date Recorded Sex Assigned at Not on file Legal Sex Male 11:52 AM CDT Gender Identity Not on file Sexual Orientation Not on file Plan of Treatment Health Maintenance Due Date Last Done Comments Hepatitis C Virus (HCV) Screening 1988 TdaP Immunization 1988 Hepatitis B Immunization (1 of 3 - 19+ 3-dose series) 08/18/2007 Influenza Immunization (#1) 2023 SARS-COV-2 Immunization (2023- season) 2023 Respiratory Syncytial Virus (RSV) Immunization (Adult) (1 - 1-dose 75+ series) 08/18/2063 Meningococcal Immunization (ACWY) Aged Out No longer eligible based on patient's age to complete this topic Pneumococcal Immunization Combined Aged Out No longer eligible based on patient's age to complete this topic Rotavirus Immunization Aged Out No lo nger eligible based on patient's age to complete this topic
[2024-09-16] MEDS: ONDANSETRON INJ 4 MG/2 ML VIAL IV PUSH ×2 (19:53→21:07)
--- OUTSIDE RECORDS SUMMARY | 2024-09-16 20:01 | XMS_ITS | Data Portability ---
Author Organization [facility] Address [address] [place] [address] Care Team Providers Care Employment Interviewer Name Role Phone ELIZABETH GUALLPA Primary Care Provider Assessment No assessment recorded. Plan of Treatment Reminders Order Date Submit Date Provider Last Modified By Organization Details Last Modified Time Details Appointments None recorded. Lab None recorded. Referral physical therapist referral 2017 018 [facility], [address] [place] [address], [id number], 8 10:17:25 Procedures None recorded. Surgeries None recorded. Imaging XR, knee, 3 view 2017 018 [facility] ([facility]) Scheduling, [address] [place] [address], [address], 8 12:55:20 Medication Orders divalproex 500 mg tablet,del ayed release 2016 [address] [place] [address] Pharmacy, [address] [place] [address], [address], 8 11:44:02 Patient TargetsNo targets recorded. Patient InstructionsNo instructions recorded. Reason for Referral Referring Physician: Elizabeth orta, Family Medicine, Encounter Date: 08/18/2017 Procedures Surgical History Date Name Laterality Status Provider Name and Address Organization Details Recorded Time Knee Surgery completed Serina Castro MA [facility] 01/19/2017 14:08:38 Imaging Results None recorded. Procedure Notes None recorded. Medical Equipment None Reported. Allergies No known drug allergies Medications Name Sig Start Date Stop Date Status Note LastModified by Organization Details LastModified Time amoxicillin 500 mg capsule active Not Available Not Available Not Available buspirone 5 mg tablet active Not Available Not Available No t Available clindamycin HCl 300 mg capsule active Not Available Not Available Not Available amoxicillin 600 mg-potassium clavulanate 42.9 mg/5 mL oral suspension active Not Available Not Available N ot Available hydrocodone 5 mg-acetamino phen 325 mg tablet active Not Available Not Available Not Available naltrexone 50 mg tablet TAKE 1 TABLET BY MOUTH EVERY DAY active Not Available Not Available No t Available clonazepam 0.5 mg tablet active Not Available Not Available Not Available oxycodone 5 mg/5 mL oral solution active Not Available Not Available Not Available penicillin V potassium 500 mg tablet active Not Available Not Available Not Available gabapentin 250 mg/5 mL oral solution active Not Available Not Available Not Available divalproex 500 mg tablet,delay ed release Take 1 tablet twice a day by oral route for 90 days. 08/18 completed Not Available Not Available Not Available ketorolac 10 mg tablet active Not Available Not Available No t Available famotidine 20 mg tablet TAKE 1 TABLET BY MOUTH TWICE A DAY active Not Available Not Available No t Available hydrocodone 7.5 mg-acetamino phen 325 mg tablet active Not Available Not Available Not Available cephalexin 500 mg capsule Take 1 capsule every 8 hours by oral route for 10 days. 08/18 completed Not Available Not Available Not Available gabapentin 300 mg capsule active Not Available Not Available Not Available zolpidem 10 mg tablet active Not Available Not Available No t Available methylpredni solone 4 mg tablets in a dose pack active Not Available Not Available No t Available lithium carbonate 300 mg tablet TAKE 1 TABLET BY MOUTH TWICE A DAY active Not Available Not Available No t Available amoxicillin 875 mg-potassium clavulanate 125 mg tablet active Not Available Not Available Not Available escitalopram 10 mg tablet active Not Available Not Available Not Available escitalopram 20 mg tablet active Not Available Not Available Not Available bupropion HCl XL 150 mg 24 hr tablet, extended release TAKE 1 TABLET BY MOUTH EVERY DAY active Not Available Not Available No t Available Children's Acetaminophe n 160 mg/5 mL oral liquid active Not Available Not Available Not Available Vitals Date Recorded Body height Body mass index (BMI) Body weight Oxygen saturation Oxygen saturation in Arterial blood by Pulse oximetry Heart rate Systolic blood pressure Diastolic blood pressure Provider Name and Address Organization Details Last Updated DateTime 8 182.88 cm 21.2 kg/m2 18464.4 1 g 98 % 98 % 64 /min 112 mm[Hg] 70 mm[Hg] Alexandra Francis MA [facility] 8 11:43:41 Date Recorded Body weight Body height Body mass index (BMI) Oxygen saturation Oxygen saturation in Arterial blood by Pulse oximetry Heart rate Systolic blood pressure Diastolic blood pressure Provider Name and Address Organization Details Last Updated DateTime 7 03989.2 4 g 182.88 cm 21.4 kg/m2 98 % 98 % 78 /min 150 mm[Hg] 70 mm[Hg] Serina Castro MA [facility] 7 14:14:16 Social History Question Answer Notes LastModified by Nitch Details LastModified Time Tobacco Smoking Status Current Every Day Smoker Serina Castro MA null, [facility] 01/19/2017 14:09:04 What Was The Date Of Your Most Recent Tobacco Screening? 01/19/2017 Information n ot available 11/08/2018 How Much Tobacco Do You Smoke? 1 PPD Information not available 01/19/2017 How Many Years Have You Smoked Tobacco? 18 Information not available 01/19/2017 Sex: Unknown Functional Status Question Answer Note LastModified by Nitch Details LastModified Time What is your level of alcohol consumption? Occasional Weekends-8 beers Information not available 01/19/2017 Mental Status None recorded. Family History Relationship Description Onset Age of this Age Resolved Age Notes LastModified by Organization Details LastModified Time Father Depressive disorder [email or web address] Not available 01/19 14:09:56 Mother Depressive disorder [email or web address] Not available 01/19 14:09:56 Medical History Condition Response Coronary Artery Disease N Other N Atrial Fibrillation N High Blood Pressure N Thyroid Problems N Kidney or Bladder Problems N Depression N COPD N Blood Clots N GI Problems N Skin Problems N Anemia N Heart Attack ([place]) N Diabetes Y Anxiety Disorder Y Muscle, Joint, or Bone Problems N Seizures/Epilepsy N Acid Reflux (GERD) Y Cancer N Stroke N Allergies N Asthma N High Cholesterol N Hepatitis N Liver Disease N Headaches N Osteoporosis N Heart Failure N Past Encounters Encounter ID Performer Location Encounter Start Date Encounter Closed Date Diagnosis/Indication Diagnosis SNOMED-CT Code Diagnosis ICD10 Code Diagnosis Note [id number] Kt Vasquez MD [facility] [address] [place] [address] 01/19/2017 13:50:05 01/19/2017 15:41:46 Chronic depression 202653488 F34.1 [id number] Kt Vasquez MD [facility] [address] [place] [address] 08/18/2017 11:25:20 08/18/2017 12:00:07 Pain in left knee 2406955097 56164 M25.562 Health Concerns Section Related Observation LastModified by Organization Detai ls LastModified Time None Recorded Concern Status LastModified by Organization Details LastModified Time None Recorded Advance Directives Directive None Recorded Payers Encounter Date Sequence Insurance Name Policy Number Policy Gonzalez Covered Member ID Gonzalez Member ID Guarantor Name 01/19/2017 1 [facility] PRIOR TO 10/15/2020 (MEDICAID REPLACEMENT - HMO) Royce Carvajal [id number] Royce Carvajal 08/18/2017 1 [facility] PRIOR TO 10/15/2020 (MEDICAID REPLACEMENT - HMO) Royce Carvajal [id number] Royce Carvajal Notes Date Note Type Note Provider Name and Address Organization Details Recorded Time 01/19/2017 text/html has not seen pcp in awhile. was given citalopram that made things worse. depakote was rxd in skilled nursing 500 bid was working. Elizabeth Guallpa PA-C Attn: [employer],[address] [place], [address], [facility] 01/19/2017 14:40:13 08/18/2017 text/html playing with his dog and rolled it. feels like a meniscus which he previously had on rt knee. Elizabeth Guallpa PA-C Attn: [employer],[address] [place], [address], [facility] 08/18/2017 11:58:49
[2024-09-16 20:11] LABS: Hematocrit 48.9 % (40.0-54.0); Hemoglobin 16.6 g/dL (14.0-18.0); Mean Corpuscular HGB Conc 33.9 g/dL (32-36); Mean Corpuscular Hemoglobin 28.9 pg (27.0-31.0); Mean Platelet Volume 10.9 fl (8.7-11.0); Platelet Count Result 289 K/mm3 (150-420); Red Blood Count 5.75 M/mm3 (4.70-6.10); Red Cell Distribution Width 13.4 % (11.6-14.4); White Blood Count 22.6 K/mm3 (4.8-10.8)
[2024-09-16] MEDS: SODIUM CHLORIDE 0.9% IV 1,000 ML 999 ML IV CONT ×2 (20:20→21:07)
[2024-09-16 20:31] LABS: Ethanol < 10 mg/dL (<10)
[2024-09-16 21:00] LABS: Anion Gap 12 mmol/L (4-12); Blood Urea Nitrogen 25 mg/dL (9-20); Calcium 9.6 mg/dL (8.4-10.2); Carbon Dioxide 35 mmol/L (22-30); Chloride 88 mmol/L (98-107); Estimated CRCL calculation 74 ml/min; Estimated Glomerular Filt Rate > 60; Glucose 149 mg/dL (65-110); Magnesium 2.3 mg/dL (1.6-2.3); Osmolality Calculated 287 mOsm/kg (285-295); Potassium 3.1 mmol/L (3.4-5.0); Sodium 135 mmol/L (137-145)
[2024-09-16 21:01] LABS: Alanine Aminotransferase 57 U/L (6-50); Albumin Level 5.3 g/dL (3.5-5.1); Alkaline Phosphatase 113 U/L (38-126); Aspartate Amino Transferase 51 U/L (17-59); Lipase 31 U/L (23-300); Total Protein 8.7 g/dL (6.3-8.2)
[2024-09-16 21:05] VITALS: BP 128/91; PULSE 80; RESP 18; TEMP 37.3; O2SAT 97
[2024-09-16 21:08] LABS: Add Urine Microscopic? YES; Appearance Urine Clear (Clear); Bilirubin Urine 1+ (Negative); Blood Urine Negative (Negative); Color Urine Brown (Yellow); Glucose Urine UA Negative (Negative); Ketones Urine Negative (Negative); Leukocyte Esterase Ur Negative LEU/UL (Negative); Nitrate Urine Negative (Negative); Protein Urine 2+ (Negative); Specific Grav Ur 1.015 (1.010-1.020)
[2024-09-16 21:16] LABS: Bacteria Urine None seen /hpf; RBC Urine 0-2 /hpf (0-2); Squamous Epithelial Cell Urine None seen /hpf (Few); WBC Urine 0-3 /hpf (0-3)
[2024-09-16 21:26] LABS: Amphetamine Screen Urine Negative (Negative); Barbiturate Screen Urine Negative (Negative); Benzodiazepines Screen Urine Positive (Negative)
[2024-09-16 21:27] LABS: Cannabinoid Screen Urine Positive (Negative); Cocaine Screen Urine Negative (Negative); Methadone Screen Urine Negative (Negative); Opiate Screen Urine Negative (Negative); Phencyclidine Screen Urine Negative (Negative)
[2024-09-16 21:47] VITALS: BP 140/90; PULSE 67; RESP 18; TEMP 37.7; O2SAT 97
[2024-09-16] MEDS: POTASSIUM CHLORIDE 20 MEQ PACKET (FOR LIQUID) 40 MEQ PO (21:59)
[2024-09-16] MEDS: PANTOPRAZOLE SODIUM IV 40 MG VIAL IV PUSH (21:59)
--- NOTE | 2024-09-16 22:00 | PC.NURSE ---
ERp in to discuss admission w/ pt. He declined admit, after trying to give po fluids and po KCL drink, pt vomited after trying to drink only a little of it and states he still isn't feeling well at all and is very nauseated. He wants admission at this time. ERP informed.
[2024-09-16] MEDS: KCL 20 MEQ/SW 100 ML 100 ML 50 MEQ IVPB (22:32)
[2024-09-16] MEDS: METOCLOPRAMIDE HCL INJ 10 MG/2 ML VIAL IV PUSH (22:33)
[2024-09-16] MEDS: SODIUM CHLORIDE 0.9% IV 1,000 ML 125 ML IV CONT (22:33)
[2024-09-16 22:37] VITALS: BP 131/89; PULSE 93; RESP 18; TEMP 37.6; O2SAT 98
--- NOTE | 2024-09-16 22:37 | PC.NURSE ---
Call placed to floor, spoke to JOSÉ LUIS Oneil. Pt will go to Rm 226 for 23 hr obs.
[2024-09-16 22:48] VITALS: BMI 21.2
--- NOTE | 2024-09-16 22:56 | ADMGEN ---
This patient, Royce Carvajal, was admitted to 2nd Floor Room 226-1. Patient/family oriented to hospital policies and general routines including ID bracelet, bed and alarms, visiting hours, pain management, procedures, bathroom and other care routines, personal items, smoking policy, room service/diet, and visiting hours. Information on how to activate the Rapid Response Team has been discussed. Patient/Family are encouraged to report perceived risks to care and to ask questions if they do not understand what they are told or what they should do.
[2024-09-16 23:16] VITALS: PULSE 93; RESP 18; O2SAT 98
[2024-09-17] VITALS: BP 125/72; PULSE 71; RESP 18; TEMP 36.8; O2SAT 99
[2024-09-17 05:37] LABS: Basophils Absolute Auto 0.03 K/mm3 (0.00-0.10); Basophils Percent Auto 0.2 % (0.0-1.0); Eosinophils Absolute Auto 0.03 K/mm3 (0.02-0.50); Eosinophils Percent Auto 0.2 % (1.0-6.0); Hematocrit 43.4 % (40.0-54.0); Hemoglobin 14.1 g/dL (14.0-18.0); Immature Granulocyte Absolute 0.08 K/mm3 (0.00-0.00); Immature Granulocyte Percent A 0.5 % (0.0-0.0); Lymphocytes Absolute Auto 2.61 K/mm3 (1.10-4.50); Lymphocytes Percent Auto 16.1 % (18.0-42.0); Mean Corpuscular HGB Conc 32.5 g/dL (32-36); Mean Corpuscular Hemoglobin 28.7 pg (27.0-31.0); Mean Corpuscular Volume 88.4 fL (78.0-102.0); Mean Platelet Volume 10.9 fl (8.7-11.0); Monocytes Absolute Auto 1.73 K/mm3 (0.10-0.90); Monocytes Percent Auto 10.7 % (2.0-11.0); Neutrophils Absolute Auto 11.74 K/mm3 (1.70-7.20); Neutrophils Percent Auto 72.3 % (50.0-70.0); Platelet Count Result 212 K/mm3 (150-420); Red Blood Count 4.91 M/mm3 (4.70-6.10); Red Cell Distribution Width 13.6 % (11.6-14.4); White Blood Count 16.2 K/mm3 (4.8-10.8)
[2024-09-17 06:02] LABS: Alanine Aminotransferase 44 U/L (6-50); Alkaline Phosphatase 91 U/L (38-126); Anion Gap 5 mmol/L (4-12); Aspartate Amino Transferase 45 U/L (17-59); Bilirubin,Total 1.5 mg/dL (0.2-1.3); Blood Urea Nitrogen 19 mg/dL (9-20); Calcium 8.3 mg/dL (8.4-10.2); Carbon Dioxide 32 mmol/L (22-30); Chloride 100 mmol/L (98-107); Estimated CRCL calculation 85 ml/min; Estimated Glomerular Filt Rate > 60; Glucose 111 mg/dL (65-110); Osmolality Calculated 287 mOsm/kg (285-295); Potassium 3.3 mmol/L (3.4-5.0); Sodium 137 mmol/L (137-145); Total Protein 6.3 g/dL (6.3-8.2)
[2024-09-17] MEDS: SODIUM CHLORIDE 0.9% IV 1,000 ML 125 ML IV CONT (06:09)
--- NOTE | 2024-09-17 07:44 | PM.SD2 ---
Same Day Admit/Disch: HPI History of Present Illness Chief complaint: nausea vomiting diarrhea hypokalemia Narrative: Royce Carvajal is a 34 [place] [address] Emergency Room Visit Note Signed with Addenda Patient: Royce Carvajal MR#: [id number] : 1990 Acct:[id number] Age: 34 ADM Date: 09/16/24 [facility]: cc: Sandra Blair, NEON MOLDER; Richy Felder MD~ ADDENDUM patient started throwing up prior to being discharged so he changes mind wanted and admission. patient was given 10 mg of Reglan IV Admission diagnosis nausea vomiting diarrhea hypokalemia alcoholism Addendum Documented By: Richy Felder MD 09/16/242211 Addendum Signed By: <Electronically signed by Richy Felder MD> 09/16/242211 HPI - General Adult General Chief complaint: Alcohol Stated complaint: dehydration Time Seen by Provider: 09/16/24 19:45 Source: patient Mode of arrival: ambulatory History of Present Illness HPI narrative: 34-year-old white male alcoholic was sober for 3 130 days and then relapsed 2 days ago since that time he has been nauseous throwing up can not keep anything down. He went altered emergency room where they put an IV in him and gave him Zofran but he had a prolonged wait after triage show a left without being seen or AMA it comes here with his IV and. ( this was removed and a new IV was started ). patient state he vomited over 10 or 12 times yesterday and some diarrhea he is nauseated he feels a little bit better than before but feels dizzy and lightheaded when he stands up otherwise he denies any pain the ankle sore throat from vomiting. For denies any bleeding or bruising lumps or bumps weakness or numbness or any other complaints. [facility] Past Medical History Medical History (Updated 09/16/24 @ 21:54 by Richy Felder MD) Insomnia Chronic depression Chronic anxiety Social History Social History Smoking packs per day: 1 Smoking cigarettes per day: 20.0 Years smoked: 20 Smoking pack-years: 20.00 Smoking status: Current every day smoker Tobacco type: cigarettes Second hand tobacco smoke exposure: No Alcohol intake: former Substance use: current Substance use type: marijuana Last use: 09/16/24 Do You Feel Safe in your Home?: Yes Lack of Transportation: No Lack of Food: Never True Current Housing: I Have Housing Concerned About Future Housing: No Difficulty Paying Gas/Electric Bills: No Difficulty Paying for Meds: No Currently Unemployed: No Education: High School Diploma/GED Difficulty w/ Childcare or Family Care: No Spiritual care concerns: No Same Day Admit/Disch: Med Pre-admit Medications Home Medications ?Medication ?Instructions ?Recorded ?Confirmed ?Type bupropion HCl 300 mg 24 hr tablet, 300 mg PO DAILY 09/16/24 09/16/24 History extended release diazepam 2 mg tablet 2 mg PO Q6H PRN anxiety 09/16/24 09/16/24 History lithium carbonate 300 mg tablet 300 mg PO BID 09/16/24 09/16/24 History ondansetron 4 mg disintegrating 4 mg PO Q4H PRN nausea and 09/16/24 Rx tablet vomiting 7 days #20 tabs pantoprazole 40 mg granules 40 mg PO DAILY #30 ea 09/16/24 Rx delayed-release for susp in packet (Protonix) potassium chloride 20 mEq 20 meq PO DAILY #10 tabs 09/16/24 Rx tablet,extended release(part/cryst) Review of Systems Review of Systems All systems reviewed & are unremarkable except as noted in HPI and below Exam Const: General: cooperative, comfortable and no acute distress Orientation/consciousness: oriented to person, oriented to place, oriented to time and patient oriented x3 GI: Auscultation: normal bowel sounds Back/Spine/Pelvis: Back: no CVA tenderness Neuro: General: oriented to person, oriented to place, oriented to time, patient oriented x3 and gait normal Extrem: General: normal to inspection, full ROM and capillary refill normal Right lower extremity: normal to inspection, full ROM and normal capillary refill Psych: Speech and movement: Normal speech and movement present and Clear speech present Affect: normal affect DS: Data Data Completed and Pending Labs on day of discharge: Labs from last 24 hours 09/17/24 09/16/24 05:24 20:04 WBC 16.2 H 22.6 H RBC 4.91 5.75 Hgb 14.1 16.6 Hct 43.4 48.9 MCV 88.4 85.0 MCH 28.7 28.9 MCHC 32.5 33.9 RDW 13.6 13.4 Plt Count 212 289 MPV 10.9 10.9 Immature Gran % (Auto) 0.5 H Neut % (Auto) 72.3 H Lymph % (Auto) 16.1 L Maury % (Auto) 10.7 Eos % (Auto) 0.2 L Baso % (Auto) 0.2 Lymph # (Auto) 2.61 Maury # (Auto) 1.73 H Eos # (Auto) 0.03 Baso # (Auto) 0.03 Abs Immat Gran (auto) 0.08 H Absolute Neuts (auto) 11.74 H Absolute Nucleated RBC 0.00 Nucleated RBC % 0.0 Sodium 137 135 L Potassium 3.3 L 3.1 L Chloride 100 88 L Carbon Dioxide 32 H 35 H Anion Gap 5 12 BUN 19 25 H Creatinine 1.07 1.20 Estim Creat Clear Calc 85 74 Estimated GFR > 60 > 60 Glucose 111 H 149 H Calculated Osmolality 287 287 Calcium 8.3 L 9.6 Magnesium 2.3 Total Bilirubin 1.5 H 2.0 H AST 45 51 ALT 44 57 H Alkaline Phosphatase 91 113 Total Protein 6.3 8.7 H Albumin 4.0 5.3 H Lipase 31 Urine Color Brown A Urine Appearance Clear Urine pH 7.0 Ur Specific [place] 1.015 Urine Protein 2+ H Urine Glucose (UA) Negative Urine Ketones Negative Ur Blood (Man) Negative Urine Nitrate Negative Urine Bilirubin 1+ H Urine Urobilinogen 1.0 Leukocyte Esterase Rfl Negative Urine RBC 0-2 Urine WBC 0-3 Ur Squamous Epith Cells None seen Urine Bacteria None seen Urine Opiates Screen Negative Urine Methadone Screen Negative Ur Barbiturates Screen Negative Ur Phencyclidine Scrn Negative Ur Amphetamine Screen Negative U Benzodiazepines Scrn Positive A Urine Cocaine Screen Negative U Cannabinoids Screen Positive A Ethyl Alcohol < 10 DS: Summary Hospital Course Reason for hospitalization: nausea and vomiting Hospital Course: This is a 34 year old who is a alcoholic who relapsed and started to have nausea and vomiting. He has become dehydrated and weak and tired. Throughout the night he received If fluids and antinausea medication . Patient has continued to improve and electrolytes are back to normal. He has been given information on rehab and he is able to teat and drink with urination without difficulties. Patient has been given Zofran for home and encourage not to drink. Vitals are stable and he is able to go home at this time. Time Spent with Patient Time attestation: Total time spent providing and/or coordinating discharge services: DS: Admitting Diagnosis Discharge Date 09/17/2024 Admitting Diagnosis Nausea and Vomiting, Dehyration , Alcoholic Discharge Plan Discharge Attending physician on discharge: Jacinta Wagner Discharging Clinician: Sisi Cartagena Anticipated Discharge Date/Time: 09/17/24 07:41 Patient Disposition: Home Activity: may shower and unlimited Diet: as tolerated Discharge Instructions: We will give you information on where you can go and call for outpateint assistance Patient Instructions: Potassium Chloride (By mouth), Ondansetron (By mouth), Pantoprazole (By mouth), Abuse of Alcohol (DC), Acute Nausea and Vomiting (DC), Fall Prevention (DC), Alcohol Dependence (DC) Patient Language: Azerbaijani Stand Alone Forms: General Discharge Information Follow-up/Referrals: Johnnie,MD Beto [Non-Staff] - 09/24/24 8:15 am Discharge Medications: New potassium chloride 20 mEq tablet,ER particles/crystals 20 meq PO DAILY Qty: 10 0RF ondansetron 4 mg tablet,disintegrating 4 mg PO Q4H PRN (Reason: nausea and vomiting) 7 Days Qty: 20 0RF Rx Instructions: give 1st dose 30min before emetogenic chemo pantoprazole [Protonix] [address] for susp in packet 40 mg PO DAILY Qty: 30 0RF Continued bupropion HCl 300 mg tablet extended release 24 hr 300 mg PO DAILY lithium carbonate 300 mg tablet 300 mg PO BID diazepam 2 mg tablet 2 mg PO Q6H PRN (Reason: anxiety) Date of admission: 09/16/24 22:12 Primary Care Provider: Sandra Blair Admitting Provider: Jacinta Wagner Attending physician on admission: Jacinta Wagner Condition: Stable
[2024-09-17 08:00] VITALS: BP 115/81; PULSE 72; RESP 18; TEMP 35.8; O2SAT 96
--- NOTE | 2024-09-17 09:20 | PC.NURSE ---
Patient alert and oriented x4 agreeable to discharge plan, reviewed medications from home and new medications to be obtained from [facility], no questions regarding medications, did refuse Wellbutrin this am, will take once he gets home. Discharged via wheelchair with mom all personal items returned.
--- NOTE | 2024-09-19 09:23 | PC.NURSE ---
Spoke with Royce r/t discharge call back today. He has no questions or concern with discharge information or education given. He indicated he plans on keeping his appointment with PCP on 09/24.
== END 2024-09-17 09:20 | disposition home or self-care (01) ==
LOC: CHSED 22:36 → CHS2ND 22:38
PROVIDERS: Admitting Provider Internal Medicine; Emergency Provider Emergency Medicine; PCP Nurse Practitioner Family; Visit Provider Internal Medicine
DX: R11.2 Nausea with vomiting, unspecified (principal); R19.7 Diarrhea, unspecified; E87.6 Hypokalemia; F10.20 Alcohol dependence, uncomplicated; K21.9 Gastro-esophageal reflux disease without esophagitis; G47.00 Insomnia, unspecified; F32.A Depression, unspecified; F41.9 Anxiety disorder, unspecified; Z79.899 Other long term (current) drug therapy
CPT/HCPCS: 36415; 80053; 80307; 81001; 82077; 83690; 83735; 85025; 85027; 96360; 96361; 96365; 96375; 96376; 99285; A9270; G0378; J2405; J2470; J2765; J3480; J7030